=== PATIENT | male | born 1985 | race Caucasian/White ===

== ENCOUNTER 2016-06-20 19:05 | Emergency (ER) | payer BC, OTHER ==
[2016-06-20 19:47] VITALS: BP 124/72; PULSE 75; TEMP 98.5; BMI 21.5
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
== END 2016-06-20 21:55 | disposition home or self-care (01) ==
LOC: EDMC 19:05
DX: S00.01XA Abrasion of scalp, initial encounter (principal); V43.52XA Car driver injured in collision with other type car in traffic accident, initial encounter
CPT/HCPCS: 99283

== ENCOUNTER 2016-06-24 21:30 | Emergency (ER) | payer OTHER, BC ==
[2016-06-24 21:55] VITALS: BP 130/73; PULSE 85; TEMP 98.4; BMI 22.9
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
== END 2016-06-24 23:35 | disposition home or self-care (01) ==
LOC: EDMC 21:30
DX: S16.1XXA Strain of muscle, fascia and tendon at neck level, initial encounter (principal); V43.52XA Car driver injured in collision with other type car in traffic accident, initial encounter
CPT/HCPCS: 72050; 99283